=== PATIENT | female | born 1970 ===

== ENCOUNTER 2023-12-16 11:12 | Outpatient (CLI) | payer SELFPAY ==
--- NOTE | 2023-12-16 11:00 | RT.EKG_ITS ---
APPROVED REPORT Exam: Resting ECG Reason for Exam: ascending aorta dilation Patient Location: O HR:63 bpm ECG Measurements Heart Rate 63 AXIS WI 174 P 39 QRSd 104 QRS 29 QT 446 T 24 QTc 457 Conclusion Sinus rhythm...normal P axis, V-rate 50- 99 Baseline wander in lead(s) I,II,aVR Normal Electrocardiogram
== END 2023-12-16 11:13 | disposition home or self-care (01) ==
LOC: DI.CARD 11:13
PROVIDERS: Visit Provider Internal Medicine Cardiovascular Disease
DX: I77.810 Thoracic aortic ectasia (principal); I10 Essential (primary) hypertension; R07.89 Other chest pain
CPT/HCPCS: 93010

== ENCOUNTER → 2023-12-30 00:34 | Outpatient (CLI) | payer OTHER, SELFPAY ==
--- NOTE | 2023-12-30 07:30 | DI.NM_ITS ---
APPROVED REPORT Exam: Exercise Treadmill Patient Location: Out-Patient Room/Bed: Stress Nurse: Ghislaine Walsh RN Ordering Provider:JUNIOR CARPIO, Contact Number: BMI: 38.21 Baseline Rhythm: Sinus Bradycardia Indications: Chest pain Medical History Medical History: Prediabetes, SAWYER, obesity, migraines, HTN, asthma, GERD, depression Cardiac Medications: Albuterol sulfate, bupropion, citalopram, losartan, omeprazole, topiramate Allergies: Latex, rizatriptan, mint, lisinopril, bactrim Cardiac Risk Factors: Family hx, HTN, prediabetes, asthma, obesity Previous Cardiac Procedures: None Pretest Chest Pain Characteristics: None Exercise History: Indeterminate Physical Disabilities: None Lung Sounds: Clear to auscultation Heart Sounds: Regular Stress Test Details Test: Exercise stress testing was performed using a Maruilio protocol. Nuclear Acquisition: Rest Tc-99m/Stress Tc-99m 1 day Rest Isotope: Tc-99m Sestamibi. Dose: 12.0 Date: 12/30/2023 Injection Time: 1100 Stress Isotope: Tc-99m Sestamibi. Dose: 36.0 Date: 12/30/2023 Injection Time: 1305 HR Resting HR Supine: 50 bpm Max Heart Rate (APMHR): 169.522138 bpm Resting HR Standin bpm Target HR (85% APMHR): 143.808358 bpm Max HR Achieved: 145 bpm % of APMHR: 85.80 Recovery HR: 73 bpm HR response to stress: Normal HR response to stress BP Resting BP Supine: 120/78 mmHg Resting BP Standin/98 mmHg Max BP: 208/60 mmHg Recovery BP: 118/74 mmHg BP response to stress: Normal blood pressure response to stress. ECG Resting ECG: Sinus Bradycardia Ectopy: None Stress ECG: Sinus Tachycardia ST Change: No significant ST segment changes noted Arrhythmia: None Recovery ECG: Sinus Rhythm Recovery ST Change: No significant ST segment changes noted Recovery Arrhythmia: None Clinical Reason for Termination: Target HR Achieved, Fatigue Stress Symptoms: Mod SOB Exercise duration: 08 min58 sec Highest Stage Reached: Stage 3: 3.4 mph at 14% grade. Exercise capacity: 8.3 METs Angina Score: None Cardenas Treadmill Score: 8.3 Rate Pressure Product: [id number] Stress ECG Conclusion 1. Resting electrocardiogram was normal 2. Patient exercised on the Maurilio protocol and completed workload of 8.3 METS 3. Normal heart rate and blood pressure response to exercise. The patient achieved 86% of maximal pr edicted heart rate for age 4. There was no electrocardiographic evidence of myocardial ischemia 5. There were no significant dysrhythmias 6. See MPI report Cardenas Treadmill Score is 8.3 which is Low risk. Stress Test Summary STAGE Time (mins) Speed (mph) Grade (%) HR BP SpO2 SYMPTOMS METS Supine 50 120/78 97% Standing 54 148/98 1 3 1.7 10 119 172/80 96% 4.5 2 6 2.5 12 133 188/74 92% 7 3 9 3.4 14 145 94% 10 1 min recovery 119 208/60 94% 3 min recovery 73 168/78 98% 6 min recovery 73 118/74 MPI Conclusion Myocardial perfusion is normal. There is no ischemia or evidence of prior infarction Calculated EF is 50%. Visually it appears higher and wall motion is normal Radiologist Interpretation Radiologist agrees with Mammalogy Teacher's Interpretation. Radiologist Interpretation by: Amol Lira MD Interpretation Date/Time: 12/30/2023 16:39:25
== END ==
PROVIDERS: Visit Provider Internal Medicine Cardiovascular Disease
DX: R07.89 Other chest pain (principal)
CPT/HCPCS: 78452; 93017